=== PATIENT | male | born 1990 | race Hispanic/Latino ===

== ENCOUNTER 2024-11-20 10:49 | Inpatient (IN) | payer SELFPAY ==
[~2024-11-20] VITALS: Ht 162.6 cm; Wt 102.1 kg
[2024-11-20] MEDS: ACETAMINOPHEN 1000 MG/100 ML IV ONE (11:59)
[2024-11-20] MEDS: SODIUM CHLORIDE 0.9% IV SCH (12:15)
[2024-11-20] MEDS: KETOROLAC TROMETHAMINE 30 MG/ML VIAL IV STA (12:17)
[2024-11-20 12:22] LABS: BASOPHILS % 0.1 % (0.0-1.0); EOSINOPHILS % 0.0 % (0.0-6.0); LYMPHOCYTES % 8.7 % (18.0-39.1); MONOCYTES % 7.5 % (4.4-11.3); NEUTROPHILS % 82.6 % (38.7-80.0); RED CELL DISTRIBUTION WIDTH 13.6 % (11.7-14.4)
[2024-11-20 12:49] LABS: EST GLOMERULAR FILTRATION RATE 121.0 ML/MIN (>=60)
[2024-11-20 13:26] LABS: INR 1.06
[2024-11-20] MEDS ORDERED: SODIUM CHLORIDE 0.9% 1000ML 2,000 ML ONE (13:48)
[2024-11-20] MEDS ORDERED: IOPAMIDOL 370 MG/ML 100 ML INFUS..BTL INJ ONE (14:10)
[2024-11-20] MEDS: ONDANSETRON HCL INJ 2MG/ML 2ML 2 MG/ML VIAL IV PRN (14:15)
[2024-11-20] MEDS: Morphine 4mg INJECTION 4 MG/ML INJ IV ONE (14:15)
[2024-11-20 14:16] LABS: LEUKOCYTE ESTERASE ,URINE NEGATIVE (NEGATIVE); PROTEIN,URINE DIPSTICK NEGATIVE (NEGATIVE); URINE UROBILINOGEN 0.2 mg/dL (0.2 - 1)
[2024-11-20 14:25] LABS: WBC,URINE (MAN) 0-5 /HPF (0-5)
[2024-11-20] MEDS: SODIUM CHLORIDE 0.9% 1000ML 1,000 ML IV SCH (18:07)
[2024-11-20] MEDS: POTASSIUM CHLORIDE 20 MEQ TAB CR PO STA (18:08)
[2024-11-20] MEDS: Morphine 4mg INJECTION 4 MG/ML INJ IV PRN (18:08)
[2024-11-20 18:09] VITALS: PULSE 82; RESP 18; TEMP 101
[2024-11-20] MEDS: ACETAMINOPHEN 325 MG TAB PO ONE (18:43)
[2024-11-20] MEDS ORDERED: FAMOTIDINE 20 MG TAB PO PRN (19:15)
[2024-11-20] MEDS ORDERED: MELATONIN 5 MG TABLET PO PRN (19:15)
[2024-11-20 21:32] VITALS: BP 121/67; PULSE 92; RESP 17; TEMP 98.6; O2SAT 100
[2024-11-20 22:00] VITALS: BP 121/67; PULSE 92; RESP 17; TEMP 98.6; O2SAT 100
[2024-11-20] MEDS: PIPERACILLIN/TAZOBACTAM 4.5 GM in SODIUM CHLORIDE 0.9% 100 ML IV SCH (23:38)
[2024-11-21] VITALS (7 sets, daily range): BP systolic 111–131; BP diastolic 62–74; PULSE 83–98; RESP 17–20; TEMP 98.6–100.2; O2SAT 98–100
[2024-11-21 07:05] LABS: BASOPHILS % 0.5 % (0.0-1.0); EOSINOPHILS % 0.2 % (0.0-6.0); LYMPHOCYTES % 8.3 % (18.0-39.1); MONOCYTES % 6.8 % (4.4-11.3); NEUTROPHILS % 83.5 % (38.7-80.0); RED CELL DISTRIBUTION WIDTH 13.8 % (11.7-14.4)
[2024-11-21 07:44] LABS: EST GLOMERULAR FILTRATION RATE 125.0 ML/MIN (>=60)
[2024-11-21] MEDS: POTASSIUM CHLORIDE 20 MEQ TAB CR PO ONE (13:10)
[2024-11-21] MEDS: ONDANSETRON HCL INJ 2MG/ML 2ML 2 MG/ML VIAL IV PRN (13:57)
[2024-11-21 13:58] LABS: BAND NEUTROPHILS % (MANUAL) 3 %; EOSINOPHILS % (MANUAL) 1 % (0-7); LYMPHOCYTES % (MANUAL) 8 % (19-48); MONOCYTES % (MANUAL) 5 % (3.4-9.0); NEUTROPHILS % (MANUAL) 83 % (40-74)
[2024-11-21 13:59] LABS: PLATELET ESTIMATE ADEQUATE; PLATELET MORPHOLOGY COMMENT NORMAL; RBC MORPHOLOGY COMMENT NORMAL
[2024-11-22] VITALS (9 sets, daily range): BP systolic 116–138; BP diastolic 68–84; PULSE 76–91; RESP 16–18; TEMP 98.2–100.8; O2SAT 98–100
[2024-11-22] MEDS: ACETAMINOPHEN 325 MG TAB PO PRN (00:32)
[2024-11-22 08:16] LABS: BASOPHILS % 0.2 % (0.0-1.0); EOSINOPHILS % 0.2 % (0.0-6.0); LYMPHOCYTES % 7.8 % (18.0-39.1); MONOCYTES % 7.9 % (4.4-11.3); NEUTROPHILS % 83.2 % (38.7-80.0); RED CELL DISTRIBUTION WIDTH 14.0 % (11.7-14.4)
[2024-11-22 08:28] LABS: EST GLOMERULAR FILTRATION RATE 126.0 ML/MIN (>=60)
[2024-11-22] MEDS: POTASSIUM CHLORIDE 20 MEQ TAB CR PO ONE (10:29)
[2024-11-23] VITALS (8 sets, daily range): BP systolic 122–151; BP diastolic 58–89; PULSE 78–88; RESP 17–20; TEMP 98.8–99.6; O2SAT 98–100
[2024-11-23] MEDS: Morphine 4mg INJECTION 4 MG/ML INJ IV PRN (06:55)
[2024-11-23 07:14] LABS: BASOPHILS % 0.2 % (0.0-1.0); EOSINOPHILS % 0.1 % (0.0-6.0); LYMPHOCYTES % 7.7 % (18.0-39.1); MONOCYTES % 6.4 % (4.4-11.3); NEUTROPHILS % 84.8 % (38.7-80.0); RED CELL DISTRIBUTION WIDTH 13.8 % (11.7-14.4)
[2024-11-23 07:36] LABS: EST GLOMERULAR FILTRATION RATE 129 ML/MIN (>=60)
[2024-11-23 12:48] LABS: LYMPHOCYTES % (MANUAL) 6 % (19-48); MONOCYTES % (MANUAL) 1 % (3.4-9.0); NEUTROPHILS % (MANUAL) 92 % (40-74); REACTIVE LYMPHOCYTES 1
[2024-11-23 12:49] LABS: PLATELET ESTIMATE SLIGHTLY INCREASED; PLATELET MORPHOLOGY COMMENT NORMAL; RBC MORPHOLOGY COMMENT NORMAL
[2024-11-23] MEDS: DICYCLOMINE HCL 10 MG CAP PO PRN (16:41)
[2024-11-24 04:40] VITALS: BP 130/84; PULSE 86; RESP 18; TEMP 98.5; O2SAT 99
[2024-11-24 06:37] LABS: BASOPHILS % 0.1 % (0.0-1.0); EOSINOPHILS % 0.3 % (0.0-6.0); LYMPHOCYTES % 9.6 % (18.0-39.1); MONOCYTES % 8.7 % (4.4-11.3); NEUTROPHILS % 80.7 % (38.7-80.0); RED CELL DISTRIBUTION WIDTH 13.9 % (11.7-14.4)
[2024-11-24 07:08] LABS: EST GLOMERULAR FILTRATION RATE 125.0 ML/MIN (>=60)
[2024-11-24 07:10] VITALS: BP 113/73; PULSE 71; RESP 18; TEMP 98.5; O2SAT 98
[2024-11-24] MEDS ORDERED: MIDAZOLAM HCL 2 MG/2 ML VIAL ONE (10:20)
[2024-11-24] MEDS ORDERED: FENTANYL CITRATE/PF 100MCG/2 ML INJ ONE (10:20)
[2024-11-24] MEDS ORDERED: SODIUM CHLORIDE 0.9% 250ML 250 ML ONE (10:21)
[2024-11-24] MEDS ORDERED: LIDOCAINE HCL 1% 30ML-PF VIAL ONE (10:41)
[2024-11-24 11:09] LABS: LYMPHOCYTES % (MANUAL) 9 % (19-48); MONOCYTES % (MANUAL) 7 % (3.4-9.0); NEUTROPHILS % (MANUAL) 84 % (40-74)
[2024-11-24 11:10] LABS: PLATELET ESTIMATE ADEQUATE; PLATELET MORPHOLOGY COMMENT NORMAL
[2024-11-24 12:30] VITALS: BP 120/80; PULSE 67; RESP 18; TEMP 98.7; O2SAT 100
[2024-11-24 17:15] VITALS: BP 114/70; PULSE 76; RESP 18; TEMP 98.2; O2SAT 100
[2024-11-24 20:00] VITALS: BP 118/76; PULSE 69; RESP 18; TEMP 98.7; O2SAT 100
[2024-11-24 21:00] VITALS: BP 118/76; PULSE 69; RESP 18; TEMP 98.7; O2SAT 100
[2024-11-25] VITALS (7 sets, daily range): BP systolic 103–120; BP diastolic 62–75; PULSE 81–94; RESP 17–20; TEMP 98.3–100.4; O2SAT 98–100
[2024-11-25 06:21] LABS: BASOPHILS % 0.3 % (0.0-1.0); EOSINOPHILS % 0.8 % (0.0-6.0); LYMPHOCYTES % 25.1 % (18.0-39.1); MONOCYTES % 6.3 % (4.4-11.3); NEUTROPHILS % 66.7 % (38.7-80.0); RED CELL DISTRIBUTION WIDTH 14.1 % (11.7-14.4)
[2024-11-25 06:40] LABS: EST GLOMERULAR FILTRATION RATE 127.0 ML/MIN (>=60)
[2024-11-25] MEDS: Doxycycline IV 100 MG in SODIUM CHLORIDE 0.9% 100 ML IV SCH (08:28)
[2024-11-26] VITALS (7 sets, daily range): BP systolic 103–128; BP diastolic 54–76; PULSE 78–103; RESP 17–20; TEMP 98.4–99.5; O2SAT 98–100
[2024-11-26 06:56] LABS: BASOPHILS % 0.3 % (0.0-1.0); EOSINOPHILS % 0.9 % (0.0-6.0); LYMPHOCYTES % 15.0 % (18.0-39.1); MONOCYTES % 3.7 % (4.4-11.3); NEUTROPHILS % 79.4 % (38.7-80.0); RED CELL DISTRIBUTION WIDTH 14.2 % (11.7-14.4)
[2024-11-26 07:16] LABS: EST GLOMERULAR FILTRATION RATE 124.0 ML/MIN (>=60)
[2024-11-26] MEDS: ENOXAPARIN SOD INJ 40 MG/0.4 ML SYR SC SCH (09:39)
[2024-11-26] MEDS ORDERED: IOPAMIDOL 370 MG/ML 100 ML INFUS..BTL INJ ONE (09:43)
[2024-11-26] MEDS: CEFAZOLIN SODIUM 2 GM in SODIUM CHLORIDE 0.9% 100 ML IV SCH (11:54)
[2024-11-27 04:00] VITALS: BP_SYST 101; BP_SYST 96; BP_DIAS 53; BP_DIAS 55; PULSE 80; PULSE 86; RESP 17; TEMP 98.3; TEMP 98.6; O2SAT 100
[2024-11-27 06:19] LABS: BASOPHILS % 0.2 % (0.0-1.0); EOSINOPHILS % 1.9 % (0.0-6.0); LYMPHOCYTES % 21.3 % (18.0-39.1); MONOCYTES % 5.6 % (4.4-11.3); NEUTROPHILS % 70.4 % (38.7-80.0); RED CELL DISTRIBUTION WIDTH 14.1 % (11.7-14.4)
[2024-11-27 06:48] LABS: EST GLOMERULAR FILTRATION RATE 126.0 ML/MIN (>=60)
[2024-11-27] MEDS ORDERED: ONDANSETRON ODT4 MG PO (08:38)
[2024-11-27] MEDS ORDERED: HYDROCODON-ACE1 EA11 PO (08:38)
[2024-11-27 08:45] VITALS: BP 105/53; PULSE 78; RESP 18; TEMP 98.5; O2SAT 100
[2024-11-27 08:46] VITALS: BP 105/55; PULSE 78; RESP 18; TEMP 98.5; O2SAT 100
[2024-11-27 12:00] VITALS: BP 109/57; PULSE 91; RESP 18; TEMP 98.7; O2SAT 100
[2024-11-27] MEDS ORDERED: KEFLEX125 MG/5 M PO (12:52)
[2024-11-27] MEDS ORDERED: METRONIDAZOLE500 MG PO (12:53)
== END 2024-11-27 14:16 | disposition home or self-care (01) | DRG 872 ==
LOC: ER 11:20 → ERHOLD 16:12 → MED/SURG3 21:19
PROVIDERS: ADMIT Family Medicine Adult Medicine; ATTEND Family Medicine Adult Medicine
PROC: 3E0333Z Introduction of Anti-inflammatory into Peripheral Vein, Percutaneous Approach (ICD-10-PCS; 2024-11-20)
PROC: 0W9J30Z Drainage of Pelvic Cavity with Drainage Device, Percutaneous Approach (ICD-10-PCS; principal; 2024-11-24)
DX: A41.51 Sepsis due to Escherichia coli [E. coli] (principal); K57.20 Diverticulitis of large intestine with perforation and abscess without bleeding; K76.0 Fatty (change of) liver, not elsewhere classified; R31.29 Other microscopic hematuria; K42.9 Umbilical hernia without obstruction or gangrene; E87.6 Hypokalemia; D75.839 Thrombocytosis, unspecified; K82.8 Other specified diseases of gallbladder; K59.00 Constipation, unspecified; F41.9 Anxiety disorder, unspecified; F12.10 Cannabis abuse, uncomplicated; E66.9 Obesity, unspecified; Z68.38 Body mass index [BMI] 38.0-38.9, adult
CPT/HCPCS: 36415; 49406; 74177; 74470; 77012; 80053; 81001; 83605; 83690; 83735; 85025; 85610; 85730; 87040; 87070; 87086; 87186; 87205; 93005; 99152; 99153; 99284; C1729; J1650; J1885; J2003; J2250; J2270; J2405; J2470; J2543; J7030; J7050; Q9967